=== PATIENT | female | born 1945 | race Two or more races ===

== ENCOUNTER 2017-01-14 15:34 | Emergency (ER) | payer BC, MEDICARE ==
[~2017-01-14] VITALS: Ht 167.6 cm; Wt 70.5 kg
[~2017-01-14 15:34] MED LIST: CYCL-319 PO; HYDR-3498 PO; HYDR1TAB PO; IBUP-1542 PO
[2017-01-14 15:39] VITALS: Ht 167.6 cm; Wt 70.5 kg
[2017-01-14 17:25] LABS: BASOPHIL # 0.1 10^3/ul (0.0-0.1); BASOPHILS % 0.7 % (0.0-2.0); EOSINOPHILS # 0.6 10^3/ul (0.0-0.5); EOSINOPHILS % 5.5 % (0.0-7.0); HEMATOCRIT 39.3 % (37.0-47.0); HEMOGLOBIN 12.6 g/dl (12.0-16.0); LYMPHOCYTES # 2.3 10^3/ul (0.8-2.9); MEAN CORPUSCULAR HEMOGLOBIN 25.8 pg (29.0-33.0); MEAN CORPUSCULAR HGB CONC 32.1 g/dl (32.0-37.0); MEAN CORPUSCULAR VOLUME 80.5 fl (82.0-101.0); MEAN PLATELET VOLUME 8.8 fl (7.4-10.4); MONOCYTES % 9.7 % (0.0-11.0); NEUTROPHIL # 6.5 10^3/ul (1.6-7.5); NEUTROPHILS % 61.7 % (39.0-77.0); PLATELET COUNT 410 10^3/UL (140-415); RED BLOOD COUNT 4.88 10^6/ul (4.20-5.40); WHITE BLOOD COUNT 10.5 10^3/ul (4.8-10.8)
[2017-01-14 17:34] LABS: ADD UMIC YES; UR ASCORBIC ACID NEGATIVE (NEGATIVE); UR BILIRUBIN (Dip) NEGATIVE (NEGATIVE); UR BLOOD (Dip) 1+ mg/dL (NEGATIVE); UR CLARITY CLEAR (CLEAR); UR COLOR STRAW (YELLOW); UR GLUCOSE (Dip) NEGATIVE (NEGATIVE); UR KETONES (Dip) NEGATIVE (NEGATIVE); UR LEUKOCYTE ESTERASE (Dip) NEGATIVE Leu/ul (NEGATIVE); UR NITRITE (Dip) NEGATIVE (NEGATIVE); UR RBC 0 /HPF (0-5); UR SPECIFIC GRAVITY (Dip) 1.004 (1.003-1.030); UR TOTAL PROTEIN (Dip) NEGATIVE (NEGATIVE); UR UROBILINOGEN (Dip) NEGATIVE (NEGATIVE)
[2017-01-14] MEDS ORDERED: SODIUM CHLORIDE 0.9% 1L BAG IV* STA (17:34)
[2017-01-14 17:41] LABS: INR 0.96; PARTIAL THROMBOPLASTIN TIME 28.6 Sec (25.0-35.0); PROTIME 12.8 Sec (12.2-14.2)
[2017-01-14 17:44] LABS: ALANINE AMINOTRANSFERASE 32 IU/L (13-69); ALBUMIN 3.9 g/dl (3.3-4.9); ALBUMIN/GLOBULIN RATIO 1.11; ALKALINE PHOSPHATASE 82 IU/L (42-121); ANION GAP 12 (8-16); ASPARTATE AMINO TRANSFERASE 19 IU/L (15-46); BILIRUBIN,INDIRECT 0.3 mg/dl (0-1.1); BILIRUBIN,TOTAL 0.3 mg/dl (0.2-1.3); BLOOD UREA NITROGEN 17 mg/dl (7-20); CALCIUM 9.8 mg/dl (8.4-10.2); CARBON DIOXIDE 27 mmol/L (21-31); CHLORIDE 104 mmol/L (97-110); GLUCOSE 97 mg/dl (70-220); SODIUM 139 mmol/L (135-144); TOTAL PROTEIN 7.4 g/dl (6.1-8.1)
--- NOTE | 2017-01-14 17:47 | RADRPT ---
PROCEDURE: XR Chest. CLINICAL INDICATION: Chest pain TECHNIQUE: AP view of the chest was performed. COMPARISON: None FINDINGS: The cardiomediastinal silhouette is within normal limits. The lungs are clear. No signs of pleural f luid or pneumothorax are seen. The osseous structures and soft tissues are unremarkable. IMPRESSION: No evidence for active cardiopulmonary disease. RPTAT: QQ .Shelly York MD, MD Date Time Electronically viewed and signed by .Shelly York MD, on 01/14/2017 17:46 .F/
[2017-01-14 18:01] LABS: TROPONIN-I < 0.012 ng/ml (0.00-0.12)
[2017-01-14 18:19] VITALS: BP 135/70; PULSE 78; RESP 18; TEMP 98.8
--- NOTE | 2017-01-14 18:20 | ERD ---
ER Documentation Chief Complaint Date/Time DATE: 01/14/17 TIME: 18:14 Chief Complaint neck pain facial swelling & fever x4 days HPI This is a 71-year-old female who presents to the emergency room for evaluation of nasal congestion, fever and facial swelling for the past 4 days. The patient states that she has been taking Tylenol and Motrin for fever. She denies any neck pain or cough or chest pain associated with this. She denies any blurred vision and also states she took a Claritin to help her with her congestion and facial swelling. She denies any difficulty swallowing or breathing and came to the emergency room for evaluation of her symptoms. ROS All systems reviewed and are negative except as per history of present illness. Medications Home Meds Discontinued Reported Medications Hydrocodone Bit/Acetaminophen (Hydrocodone/Apap 5/500 Tab) 1 Tab Tablet, 1 TAB PO NEEDED 10/05/11 Discontinued Scripts Hydrocodone Bit-Acetaminophen* ([place]*) 5-325 Mg Tab, 1 TAB PO Q6 Y for PAIN, # 7 TAB This medication makes you sleepy. Do not drive or operate heavy machinery while taking it. Prov:VANE BOWEN PA-C 11/02/15 Cyclobenzaprine Hcl* (Cyclobenzaprine Hcl*) 10 Mg Tablet, 10 MG PO BID, #10 TAB Prov:PUMA SHER PA-C 10/09/15 Ibuprofen* (Motrin*) 600 Mg Tab, 600 MG PO Q6, #30 TAB Prov:PUMA SHER PA-C 10/09/15 Allergies Allergies: Coded Allergies: No Known Drug Allergies (Verified Allergy, Unknown, 01/14/17) PMhx/Soc History of Surgery: Yes (NEPHRECTOMY FOR DONATION, RT CARPEL TUNNEL) Anesthesia Reaction: No Hx Neurological Disorder: No Hx Respiratory Disorders: No Hx Cardiac Disorders: No Hx Psychiatric Problems: No Hx Miscellaneous Medical Probl: No Hx Alcohol Use: No Hx Substance Use: No Hx Tobacco Use: No Smoking Status: Never smoker Physical Exam Vitals Vital Signs Date Time Temp Pulse Resp B/P Pulse Ox O2 Delivery O2 Flow Rate FiO2 01/14/17 15:39 98.3 117 20 151/72 99 Physical Exam INITIAL VITAL SIGNS: Reviewed by me GENERAL: The patient is well developed and appropriate for usual state of health in no apparent distress HEENT: Bilateral nasal congestion, no pharyngeal edema, no facial edema pupils equal, round, and reactive to light. EOMI. There is no scleral icterus. NECK: C-spine is soft and supple, there is no meningismus. There is no cervical lymphadenopathy. LUNGS: Clear to auscultation bilaterally. There are no rales, wheezes or rhonchi. HEART: Tachycardic, no murmurs, clicks, rubs or gallops. ABDOMEN: Soft, non-tender, non-distended. There are bowel sounds in all four quadrants. No rebound or guarding. EXTREMITIES: There is no peripheral cyanosis or edema. No focal swelling or erythema. NEUROLOGICAL: The patient moves all four extremities with 5/5 strength. Cranial nerves II - XII are intact. Normal gait. Alert and oriented SKIN: There is no apparent rash or petechiae. HEME/LYMPHATIC: There is no evidence of excessive bruising or lymphedema. PSYCHIATRIC: The patient does not appear anxious or depressed. Result Diagram: 01/14/17 1700 01/14/17 1700 Results 24 hrs Laboratory Tests Test 01/14/17 17:00 01/14/17 17:15 White Blood Count 10.510^3/ul Red Blood Count 4.8810^6/ul Hemoglobin 12.6g/dl Hematocrit 39.3% Mean Corpuscular Volume 80.5fl Mean Corpuscular Hemoglobin 25.8pg Mean Corpuscular Hemoglobin Concent 32.1g/dl Red Cell Distribution Width 13.0% Platelet Count 24445^3/UL Mean Platelet Volume 8.8fl Neutrophils % 61.7% Lymphocytes % 22.0% Monocytes % 9.7% Eosinophils % 5.5% Basophils % 0.7% Nucleated Red Blood Cells % 0.0/100WBC Neutrophils # 6.510^3/ul Lymphocytes # 2.310^3/ul Monocytes # 1.010^3/ul Eosinophils # 0.610^3/ul Basophils # 0.110^3/ul Nucleated Red Blood Cells # 0.010^3/ul Prothrombin Time 12.8Sec Prothrombin Time Ratio 1.0 INR International Normalized Ratio 0.96 Activated Partial Thromboplast Time 28.6Sec Sodium Level 139mmol/L Potassium Level 4.0mmol/L Chloride Level 104mmol/L Carbon Dioxide Level 27mmol/L Anion Gap 12 Blood Urea Nitrogen 17mg/dl Creatinine 0.80mg/dl Glucose Level 97mg/dl Lactic Acid Level 0.9mmol/L Calcium Level 9.8mg/dl Total Bilirubin 0.3mg/dl Direct Bilirubin 0.00mg/dl Indirect Bilirubin 0.3mg/dl Aspartate Amino Transf (AST/SGOT) 19IU/L Alanine Aminotransferase (ALT/SGPT) 32IU/L Alkaline Phosphatase 82IU/L Troponin I < 0.012ng/ml Total Protein 7.4g/dl Albumin 3.9g/dl Globulin 3.50g/dl Albumin/Globulin Ratio 1.11 Urine Color STRAW Urine Clarity CLEAR Urine pH 6.0 Urine Specific [place] 1.004 Urine Ketones NEGATIVEmg/dL Urine Nitrite NEGATIVEmg/dL Urine Bilirubin NEGATIVEmg/dL Urine Urobilinogen NEGATIVEmg/dL Urine Leukocyte Esterase NEGATIVELeu/ul Urine Microscopic RBC 0/HPF Urine Microscopic WBC 0/HPF Urine Hemoglobin 1+mg/dL Urine Glucose NEGATIVEmg/dL Urine Total Protein NEGATIVEmg/dl Current Medications Medications (Trade) Dose Ordered Sig/Noel Route PRN Reason Start Time Stop Time Status Last Admin Dose Admin Sodium Chloride (NS) 2,000 ml BOLUS OVER 2 HOURS STAT IV* 01/14/17 17:34 01/14/17 17:35 DC 01/14/17 17:53 Procedures/MDM EKG: Rate/Rhythm: [Normal Sinus Rhythm] QRS, ST, T-waves: [No changes consistent w/ acute ischemia] Impression: [No evidence of ischemia or arrhythmia] Chest X-ray 1V Interpreted by me: Soft Tissue: No acute abnormalities Bones: No acute abnormalities Mediastinum/Cardiac Silhouette/Lungs: [No acute abnormalities] This 71-year-old female presents to the emergency room for evaluation of fever, nasal congestion, facial swelling. On my examination there was no facial swelling, she had no pharyngeal edema. She was tolerating secretions and was not hypoxic. The patient was slightly tachycardic with a heart rate of 104. I did start a septic workup on this patient and her lab work has come back within normal limits. She was given 1-1/2 L of fluid and when I reevaluated this patient she was in no acute distress, influenza is negative at this time. I did advise the patient that although I do not see any facial swelling after I do not see any facial swelling. The patient states that the her face is more swollen than normal. Claritin is not working I told the patient I will write her prescription for Medrol Dosepak. The patient is okay to plan of care and will be discharged at this time with instructions to return to the emergency room for any signs of increased fever or agitation or shortness of breath and she verbalized understanding Departure Diagnosis: Primary Impression: Viral syndrome Additional Impression: Tachycardia Condition: Stable GILMA NUNEZ DO Jan 14, 2017 18:20
[2017-01-14] MEDS ORDERED: MED4DP PO (18:21)
== END 2017-01-14 18:19 | disposition home or self-care (01) ==
LOC: E/R 15:34
DX: B34.9 Viral infection, unspecified (principal); R00.0 Tachycardia, unspecified; R07.9 Chest pain, unspecified
CPT/HCPCS: 36415; 71010; 80053; 81001; 83605; 84484; 85025; 85610; 85730; 87040; 87086; 87400; 93005; 99285; J7030

== ENCOUNTER 2017-01-28 11:56 | Observation (INO) | payer MEDICARE ==
[~2017-01-28] VITALS: Ht 167.6 cm; Wt 72.0 kg
[~2017-01-28 11:56] MED LIST changes: -CYCL-319 PO; -HYDR-3498 PO; -HYDR1TAB PO; -IBUP-1542 PO; +MED4DP PO
--- NOTE | 2017-01-28 12:26 | ERA ---
ER Documentation Chief Complaint Date/Time DATE: 01/28/17 TIME: 12:24 Chief Complaint FEVER ON & OFF X6 DAYS, FINISH ABX ON 01/19/17, CHANGE IN LEFT EYE VISION HPI This is a 71-year-old female with a past medical history of cataracts status post left eye cataract removal and lens replacement, left nephrectomy for donation who is presenting with waxing and waning fever over the last several weeks. The patient states that she started to develop a fever. She felt facial and throat swelling and pain. She was evaluated on January 14 and ultimately discharged with a prescription for a Medrol Dosepak. She was later evaluated by her primary doctor and ultimately prescribed antibiotics that she finished on the . She felt like things perhaps were getting better, but she began to develop fever again after cessation of the antibiotics. She also endorses generalized fatigue. Over the past few days, she is also felt mild intermittent palpitations, which was concerning to her. She has a secondary complaint of left visual impairment. She does have a history as described above, and she is concerned that something could be wrong with her lens. She was evaluated by an elementary special education teacher who stated that it seemed like her optic nerve was swollen. She is set to be evaluated by a retina specialist. The patient has had no headache. The patient denies lightheadedness or dizziness. She denies a cough. The patient has had no chest pain or shortness of breath or any trouble breathing. The patient denies abdominal pain or changes to bowel movements or urination. The patient has had no focal deficits , aside from her eye complaints. The patient has had no weakness or numbness or tingling to the face or extremities. ROS All systems reviewed and are negative except as per history of present illness. Medications Home Meds Active Scripts Methylprednisolone* (Medrol* DOSE PACK) 4 Mg/Dose-Pack Tab.ds.pk, 4 MG PO . DIRECTED for 7 Days, PACKET Prov:JEN NUNEZLARRY GOODWIN 01/14/17 Allergies Allergies: Coded Allergies: No Known Drug Allergies (Verified Allergy, Unknown, 01/14/17) PMhx/Soc History of Surgery: Yes (NEPHRECTOMY FOR DONATION, RT CARPEL TUNNEL, left eye cataract surgery) Anesthesia Reaction: No Hx Neurological Disorder: No Hx Respiratory Disorders: No Hx Cardiac Disorders: No Hx Psychiatric Problems: No Hx Miscellaneous Medical Probl: No Hx Alcohol Use: No Hx Substance Use: No Hx Tobacco Use: No FmHx Family History: No diabetes Physical Exam Vitals Vital Signs Date Time Temp Pulse Resp B/P Pulse Ox O2 Delivery O2 Flow Rate FiO2 01/28/17 14:13 98.5 90 20 124/64 100 Room Air 01/28/17 12:58 Nasal Cannula 01/28/17 12:04 98.8 124 22 140/74 99 Physical Exam Const: No apparent distress, well-developed, well-nourished Head: Atraumatic Eyes: Normal Conjunctiva. Extraocular movements intact. Left eye peripheral visual field deficits. Ophthalmologic exam limited secondary to patient's inability to keep her eye still and the fact that the eyes is not dilated ENT: Normal External Ears, Nose and Mouth. No oral pharyngeal erythema or exudate or edema. Tonsils are symmetric and normal in appearance Neck: Full range of motion. ~ No meningismus. Resp: Clear to auscultation bilaterally Cardio: Regular rhythm, sinus tachycardia, no murmurs Abd: Soft, non tender, non distended. Normal bowel sounds, well-healed left abdominal surgical scar Skin: No petechiae or rashes Back: No midline or flank tenderness Ext: No cyanosis, or edema Neur: Awake and alert, oriented 4. Cranial nerves intact, aside from known left eye deficits. No facial droop. Normal strength and sensation in all extremities. Coordination with finger to nose normal. Psych: Normal Mood and Affect Result Diagram: 01/28/17 1254 01/28/17 1254 Results 24 hrs Laboratory Tests Test 01/28/17 12:54 White Blood Count 12.210^3/ul Red Blood Count 4.6010^6/ul Hemoglobin 11.3g/dl Hematocrit 37.0% Mean Corpuscular Volume 80.4fl Mean Corpuscular Hemoglobin 24.6pg Mean Corpuscular Hemoglobin Concent 30.5g/dl Red Cell Distribution Width 13.5% Platelet Count 29045^3/UL Mean Platelet Volume 9.1fl Neutrophils % 73.9% Lymphocytes % 16.4% Monocytes % 6.3% Eosinophils % 2.3% Basophils % 0.7% Nucleated Red Blood Cells % 0.0/100WBC Neutrophils # 9.010^3/ul Lymphocytes # 2.010^3/ul Monocytes # 0.810^3/ul Eosinophils # 0.310^3/ul Basophils # 0.110^3/ul Nucleated Red Blood Cells # 0.010^3/ul Prothrombin Time 12.7Sec Prothrombin Time Ratio 1.0 INR International Normalized Ratio 0.95 Activated Partial Thromboplast Time 29.5Sec Urine Color COLORLESS Urine Clarity CLEAR Urine pH 7.0 Urine Specific [place] 1.002 Urine Ketones NEGATIVEmg/dL Urine Nitrite NEGATIVEmg/dL Urine Bilirubin NEGATIVEmg/dL Urine Urobilinogen NEGATIVEmg/dL Urine Leukocyte Esterase NEGATIVELeu/ul Urine Hemoglobin NEGATIVEmg/dL Urine Glucose NEGATIVEmg/dL Urine Total Protein NEGATIVEmg/dl Sodium Level 138mmol/L Potassium Level 4.1mmol/L Chloride Level 103mmol/L Carbon Dioxide Level 29mmol/L Anion Gap 10 Blood Urea Nitrogen 14mg/dl Creatinine 0.81mg/dl Glucose Level 116mg/dl Lactic Acid Level 1.8mmol/L Calcium Level 9.4mg/dl Total Bilirubin 0.2mg/dl Direct Bilirubin 0.00mg/dl Indirect Bilirubin 0.2mg/dl Aspartate Amino Transf (AST/SGOT) 21IU/L Alanine Aminotransferase (ALT/SGPT) 29IU/L Alkaline Phosphatase 85IU/L Troponin I < 0.012ng/ml Total Protein 6.8g/dl Albumin 3.6g/dl Globulin 3.20g/dl Albumin/Globulin Ratio 1.12 Thyroid Stimulating Hormone (TSH) 2.580MIU/L Free Thyroxine 1.02ng/dl Current Medications Medications (Trade) Dose Ordered Sig/Noel Route PRN Reason Start Time Stop Time Status Last Admin Dose Admin Ketorolac Tromethamine (Toradol) 15 mg ONCE STAT IV 01/28/17 13:55 01/28/17 13:56 DC 01/28/17 14:10 Procedures/MDM MDM Patient's presentation warrants further investigation. The patient is afebrile in the emergency department, but she did take Tylenol 2 hours prior to arrival today. She remained afebrile 4 hours out from her Tylenol dose, which is reassuring. Take any drugs chronically, and I do not suspect a drug fever. An infectious etiology is certainly possible, and a workup will be performed. We will also obtain a septic workup, including CBC, CMP and lactic. That said, I am less suspicious for sepsis at this time. She will receive IV fluids given her tachycardia to evaluate for improvement. I will also obtain a TSH for evaluation of her thyroid function given her tachycardia today. An inflammatory process is also possible, but the patient does not endorse any autoimmune diseases in her or her family. She endorses left eye complaints, but she has had previous surgeries to that I, and it is currently being worked up by an elementary special education teacher. That said, there is concern of papilledema. I will obtain a CT scan for intracranial evaluation. LABS The patient's blood work was obtained and reviewed. The patient seemed shows mild leukocytosis but no left shift. The patient is afebrile, and I do not suspect a systemic infection. The patient is not anemic today. The patient's platelet count is unremarkable. The patient's CMP shows no signs of metabolic or electrolyte abnormality. The patient has normal renal and hepatic function testing. Her TSH is currently pending. Her lactic is within normal limits. Her rapid strep test was negative. EKG EKG read by me: Rate/Rhythm: Regular rhythm, sinus tachycardia at 108bpm Intervals: Normal [place]: Left shifted Impression: No evidence of acute ischemia, No ST or T wave changes concerning for acute coronary syndrome IMAGING CXR FINDINGS: The lungs are clear. The heart size is normal. There is no pleural effusion. There is no pneumothorax. IMPRESSION: Normal chest radiograph. No change from 01/14/2017. Electronically viewed and signed by .Jimbo Garcia MD, MD on 01/28/2017 13:17 CT HEAD FINDINGS: There is normal armstrong-white matter differentiation. The ventricles and cisterns are normal. There is no intracranial hemorrhage or space-occupying lesion. There is no skull fracture or lytic lesion. IMPRESSION: Normal noncontrast CT scan of the brain. No change from 01/16/2013. Electronically viewed and signed by .Jimbo Garcia MD, on 01/28/2017 13:41 TREATMENT/DISPOSITION After receiving IV fluids, the patient's heart rate returned to within normal limits. Her most recent pulse check was at 98, which is reassuring. The patient's vital signs remained stable while in the emergency department. She was initially hypertensive. This may be followed up by her primary physician as an outpatient. I do not see signs of sepsis or an infectious etiology at this time. The patient does have a mild leukocytosis, but no left shift. This could be an inflammatory process or stress reaction. The patient was told that she may have some evidence of papilledema by her elementary special education teacher. She has a retina specialist that she is already going to see. The patient's CT scan is negative at this time. She does not have a history of MS, and I have low suspicion for this presently. She has had surgeries of that in the past which may complicate the picture as well. This also needs to be further evaluated as an outpatient. I will provide the patient a prescription for steroids, which may provide some relief. The patient needs to follow-up with her primary care physician in 1-3 days for reevaluation. She will be given precautions with which to return to the emergency department. The patient is stable for discharge at this time. Departure Diagnosis: Primary Impression: Fever Qualified Code: R50.9 - Fever, unspecified fever cause Additional Impression: Sinus tachycardia Condition: Stable KATIE ADEN MD Jan 28, 2017 12:26
[2017-01-28 13:14] LABS: BASOPHIL # 0.1 10^3/ul (0.0-0.1); BASOPHILS % 0.7 % (0.0-2.0); EOSINOPHILS # 0.3 10^3/ul (0.0-0.5); EOSINOPHILS % 2.3 % (0.0-7.0); HEMOGLOBIN 11.3 g/dl (12.0-16.0); LYMPHOCYTES % 16.4 % (15.0-51.0); MEAN CORPUSCULAR HEMOGLOBIN 24.6 pg (29.0-33.0); MEAN CORPUSCULAR HGB CONC 30.5 g/dl (32.0-37.0); MEAN CORPUSCULAR VOLUME 80.4 fl (82.0-101.0); MEAN PLATELET VOLUME 9.1 fl (7.4-10.4); MONOCYTE # 0.8 10^3/ul (0.3-0.9); MONOCYTES % 6.3 % (0.0-11.0); NEUTROPHILS % 73.9 % (39.0-77.0); PLATELET COUNT 378 10^3/UL (140-415); RED CELL DISTRIBUTION WIDTH 13.5 % (11.5-14.5); WHITE BLOOD COUNT 12.2 10^3/ul (4.8-10.8)
--- NOTE | 2017-01-28 13:17 | RADRPT ---
PROCEDURE: XR Chest. CLINICAL INDICATION: Fever and sepsis. TECHNIQUE: Single frontal view. COMPARISON: 01/14/2017. FINDINGS: The lungs are clear. The heart size is normal. There is no pleural effusion. There is no pneumothorax. IMPRESSION: 1. Normal chest radiograph. 2. No change from 01/14/2017. RPTAT: QQ .Jmibo Garcia MD, MD Date Time Electronically viewed and signed by .Jimbo Garcia MD, on 01/28/2017 13:17 .R/
[2017-01-28 13:19] LABS: ADD UMIC NO; UR ASCORBIC ACID NEGATIVE (NEGATIVE); UR BILIRUBIN (Dip) NEGATIVE (NEGATIVE); UR BLOOD (Dip) NEGATIVE (NEGATIVE); UR CLARITY CLEAR (CLEAR); UR COLOR COLORLESS (YELLOW); UR GLUCOSE (Dip) NEGATIVE (NEGATIVE); UR KETONES (Dip) NEGATIVE (NEGATIVE); UR LEUKOCYTE ESTERASE (Dip) NEGATIVE Leu/ul (NEGATIVE); UR NITRITE (Dip) NEGATIVE (NEGATIVE); UR SPECIFIC GRAVITY (Dip) 1.002 (1.003-1.030); UR TOTAL PROTEIN (Dip) NEGATIVE (NEGATIVE); UR UROBILINOGEN (Dip) NEGATIVE (NEGATIVE)
[2017-01-28 13:22] LABS: INR 0.95; PROTIME 12.7 Sec (12.2-14.2)
[2017-01-28 13:23] LABS: PARTIAL THROMBOPLASTIN TIME 29.5 Sec (25.0-35.0)
[2017-01-28 13:25] LABS: ALANINE AMINOTRANSFERASE 29 IU/L (13-69); ALBUMIN 3.6 g/dl (3.3-4.9); ALBUMIN/GLOBULIN RATIO 1.12; ALKALINE PHOSPHATASE 85 IU/L (42-121); ANION GAP 10 (8-16); ASPARTATE AMINO TRANSFERASE 21 IU/L (15-46); BILIRUBIN,INDIRECT 0.2 mg/dl (0-1.1); BILIRUBIN,TOTAL 0.2 mg/dl (0.2-1.3); BLOOD UREA NITROGEN 14 mg/dl (7-20); CALCIUM 9.4 mg/dl (8.4-10.2); CARBON DIOXIDE 29 mmol/L (21-31); CHLORIDE 103 mmol/L (97-110); CREATININE 0.81 mg/dl (0.44-1.00); GLUCOSE 116 mg/dl (70-220); POTASSIUM 4.1 mmol/L (3.5-5.1); SODIUM 138 mmol/L (135-144); TOTAL PROTEIN 6.8 g/dl (6.1-8.1)
[2017-01-28 13:38] LABS: TROPONIN-I < 0.012 ng/ml (0.00-0.12)
--- NOTE | 2017-01-28 13:49 | RADRPT ---
PROCEDURE: CT Brain without contrast. CLINICAL INDICATION: Headache. Fever. Sepsis. TECHNIQUE: A CT of the brain without contrast was performed utilizing axial sections from the skul l base through the vertex. The patient was scanned without intravenous contrast enhancement. [place] l and coronal reformatted images were obtained using the data from the axial images. Total exam DLP is 720.23 mGy-cm. CTDIvol is 44.58 mGy. One or more of the following dose reduction techniques we re used: Automated exposure control, adjustment of the mA and/or kV according to patient size, use o f iterative reconstruction technique. COMPARISON: CT scan of the brain dated 01/16/2013. FINDINGS: There is normal armstrong-white matter differentiation. The ventricles and cisterns are normal. There is no intracranial hemorrhage or space-occupying lesion. There is no skull fracture or lytic lesion. IMPRESSION: 1. Normal noncontrast CT scan of the brain. 2. No change from 01/16/2013. RPTAT: QQ .Jimbo Garcia MD, MD Date Time Electronically viewed and signed by .Jimbo Garcia MD, on 01/28/2017 13:41 .R/
[2017-01-28] MEDS ORDERED: KETOROLAC 15 MG INJ IV STA (13:55)
[2017-01-28] MEDS ORDERED: PRED20TA PO (14:51)
[2017-01-28 16:00] VITALS: PULSE 86; TEMP 98
[2017-01-28] MEDS ORDERED: ONDANSETRON 4 MG INJ IV PRN ×2 (17:00→17:30)
[2017-01-28] MEDS ORDERED: ACETAMINOPHEN 325 MG TAB PO PRN ×2 (17:00→18:00)
[2017-01-28] MEDS ORDERED: METHYLPREDNISOLONE 1000 MG INJ IVPB SCH (17:00)
[2017-01-28] MEDS ORDERED: NACL 0.9% 3 ML SYG IV SCH (17:30)
[2017-01-28] MEDS ORDERED: morphine 2 MG INJ IV PRN (17:30)
[2017-01-28] MEDS ORDERED: BISACODYL (EC) 5 MG TAB PO PRN (17:30)
[2017-01-28 17:35] VITALS: Ht 167.6 cm; Wt 72.0 kg
--- NOTE | 2017-01-28 17:56 | HP ---
Date/Time of Note Date/Time of Note DATE: 01/28/17 TIME: 17:37 Assessment/Plan VTE Prophylaxis VTE Prophylaxis Intervention: SCD's Assessment/Plan Chief Complaint/Hosp Course Patient is a 71-year-old Bangl[place] female with no significant past medical history who presents with left-sided jaw and temporal pain found to have elevated ESR, admitted for possible giant cell arteritis Assessment Bilateral jaw pain, questionable giant cell arteritis Left temporal pain Subjective fevers, not seen during this admission so far Left eye vision loss Throat pain, resolving anemia Elevated ESR Elevated CRP Leukocytosis Tachycardia, resolved Plan -Patient admitted for possible giant cell arteritis, patient has mildly elevated ESR as well as CRP. Patient also has physical symptoms consistent with giant cell arteritis including vision loss, left temporal pain, jaw pain. Although there may be other etiologies of her vision loss including a history of glaucoma, cannot rule out giant cell arteritis at this time. -Due to possible acute vision loss, will start high-dose IV steroids at 1 g daily for 3 days and then high-dose oral steroids upon DC. -fever has not been documented here during this encounter however blood cultures were taken in the ED and patient will be monitored. Patient does have a slight elevated white count however may be reactive and is very near normal at this time. Will monitor closely -Radiology has been contacted in order to order a ultrasound of the temporal artery, upon speaking with on-call radiologist, it is possible to get an ultrasound of the temporal artery, however upon speaking to the machining technician, a more specialized sleep lab technologist who is more comfortable/ experienced with vascular ultrasounds will be in tomorrow, patient is currently getting treatment for possible temporal arteritis, and experienced outside plant technician would be valuable in diagnosing this condition in a noninvasive way, radiology stated they would attempt to put the correct order in. Will contact radiology again tomorrow if appropriate study is not entered into the chart. -Patient also has undiagnosed anemia, will obtain reticulocyte count and iron panel for tomorrow -uncertain if patient's subjective fevers are associated with this disease process, however will monitor closely. Problems: HPI/ROS Admit Date/Time Admit Date/Time Hx of Present Illness Patient is a 71-year-old Bangl[place] female with no significant past medical history except for elective nephrectomy for transplant of her kidney into her who presents with a 2-3 week history of multiple symptoms including intermittent fevers, left eye vision loss, left temporal pain as well as bilateral jaw pain. Patient states that approximately 3 weeks ago, there was a leak in her house and upon fixing the leak which required operating the carpet and tile and large fans, patient began to feel ill. Patient states that she has been having on and off fevers and actually was in the ED a few weeks ago and was discharged with a Medrol Dosepak which she felt her symptoms were relieved. Patient also saw her primary care provider who stated to alternate between Tylenol and Advil for her fevers. Patient states that she came to the ED as her symptoms have not resolved. Patient had recently seen her floral department specialist for her new onset 2 week history of left eye vision loss which resulted in questionable papilledema and was referred to a retina specialist. Currently patient still complains of all the same complaints. Patient denies any headache or new onset bilateral shoulder or pelvic pain. Patient does have mild chronic right shoulder issues for many years however. Patient denies nausea and vomiting, shortness of breath or chest pain. No issues with mobility and patient states that she never gets sick and is on no medications. No reported fevers in ED, however patient states she took tylenol before she came into the ED. PMH: Elective left nephrectomy for transplantation, cataracts PSH: Left nephrectomy, right carpal tunnel surgery, left cataract surgery Social: Denies smoking, drinking, drugs Meds: None PMH/Family/Social Social History Smoking Status: Never smoker Exam/Review of Systems Vital Signs Vitals Vital Signs Date Time Temp Pulse Resp B/P Pulse Ox O2 Delivery O2 Flow Rate FiO2 01/28/17 16:00 98.0 86 20 131/66 100 Room Air Exam Exam Physical exam General: Patient is laying in bed and answers questions appropriately Mentation: Patient is alert and oriented 4, Head: Normocephalic atraumatic, mild tenderness palpating the left TMJ/temporal area. Eyes: EOMI, pupils reactive to light Neck: Supple, nontender, midline Respiratory: Clear to auscultation bilaterally Cardiovascular: regular rate, no obvious murmurs Gastrointestinal: non-tender to palpation, bowel sounds heard. Neurological: Moves all extremities spontaneously Skin: No new skin lesions Labs Result Diagram: 01/28/17 1254 01/28/17 1254 MAILE MADISON Jan 28, 2017 17:53
[2017-01-28 18:00] VITALS: BP 158/75; RESP 18
[2017-01-28 20:12] VITALS: BP 129/58; RESP 18
[2017-01-28] MEDS: METHYLPRED. NA SUCC 1,000 MG in DEXTROSE 5% 50 ML IV SCH (20:26)
[2017-01-29 02:01] VITALS: BP 115/56; RESP 18
[2017-01-29 05:15] LABS: BASOPHILS % 0.2 % (0.0-2.0); HEMATOCRIT 39.5 % (37.0-47.0); LYMPHOCYTES # 0.9 10^3/ul (0.8-2.9); LYMPHOCYTES % 9.8 % (15.0-51.0); MEAN CORPUSCULAR HEMOGLOBIN 24.2 pg (29.0-33.0); MEAN CORPUSCULAR HGB CONC 30.4 g/dl (32.0-37.0); MEAN CORPUSCULAR VOLUME 79.8 fl (82.0-101.0); MEAN PLATELET VOLUME 8.9 fl (7.4-10.4); MONOCYTES % 0.3 % (0.0-11.0); NEUTROPHILS % 89.1 % (39.0-77.0); PLATELET COUNT 388 10^3/UL (140-415); RED BLOOD COUNT 4.95 10^6/ul (4.20-5.40); RED CELL DISTRIBUTION WIDTH 13.2 % (11.5-14.5); WHITE BLOOD COUNT 8.9 10^3/ul (4.8-10.8)
[2017-01-29 05:16] LABS: RETICULOCYTE COUNT % 0.6 % (0.5-1.5)
[2017-01-29 05:32] LABS: IRON 18 ug/dl (35-150)
[2017-01-29 05:37] LABS: ALBUMIN 3.5 g/dl (3.3-4.9); ALBUMIN/GLOBULIN RATIO 0.92; BILIRUBIN,INDIRECT 0.2 mg/dl (0-1.1); BILIRUBIN,TOTAL 0.2 mg/dl (0.2-1.3); CALCIUM 9.9 mg/dl (8.4-10.2); CREATININE 0.74 mg/dl (0.44-1.00); POTASSIUM 4.3 mmol/L (3.5-5.1); TOTAL PROTEIN 7.3 g/dl (6.1-8.1)
[2017-01-29 05:41] LABS: TOTAL IRON BINDING CAPACITY 279 ug/dl (241-421)
[2017-01-29 07:00] VITALS: BP 119/58; RESP 18
[2017-01-29] MEDS: METHYLPRED. NA SUCC 1,000 MG in DEXTROSE 5% 50 ML IV SCH (08:27)
[2017-01-29] MEDS: ENOXAPARIN 40 MG/0.4 ML SYG SC SCH (08:47)
--- NOTE | 2017-01-29 11:23 | PN ---
Date/Time of Note Date/Time of Note DATE: 01/29/17 TIME: 10:35 Assessment/Plan VTE Prophylaxis VTE Prophylaxis Intervention: SCD's Lines/Catheters IV Catheter Type (from Nrsg): Saline Lock Assessment/Plan Assessment/Plan 1. Vision loss with left temporal pain - possibly temporal arteritis - Elevated ESR and CRP - Started on high dose steroids - Vascular surgery consult placed for biopsy to confirm giant cell arteritis - Will continue on high dose steroids IV and transition to PO upon discharge. - remains afebrile 2. Anemia - low iron levels. Will start on PO iron supplement Subjective 24 Hr Interval Summary Free Text/Dictation Patient states vision has slightly improved in right eye. Was completely black yesterday but does see some light coming through now. Still blurry however. Able to tolerating chewing and denies any headache or fevers. Requesting to see eye doctor but none available inhouse. Exam/Review of Systems Vital Signs Vitals Vital Signs Date Time Temp Pulse Resp B/P Pulse Ox O2 Delivery O2 Flow Rate FiO2 01/29/17 07:00 97.8 98 18 119/58 98 01/28/17 16:00 Room Air Intake and Output 01/28/17 01/28/17 01/29/17 15:00 23:00 07:00 Intake Total 50 ml 200 ml Balance 50 ml 200 ml Exam General: NAD, awake and alert. answering appropriately Head: Normocephalic atraumatic, mild tenderness palpating the left TMJ Eyes: EOMI, pupils reactive to light Neck: Supple, nontender, midline Lungs: Clear to auscultation bilaterally, no wheezes or crackles CVS: regular rate, no obvious murmurs GI: non-tender to palpation, bowel sounds heard. soft, no rebound or guarding Ext: no clubbing, edema, or cyanosis Results Result Diagram: 01/29/17 0457 01/29/17 0457 Results 24 hrs Laboratory Tests Test 01/28/17 12:45 01/28/17 12:54 01/29/17 04:57 Erythrocyte Sedimentation Rate 53 H C-Reactive Protein 5.9 H White Blood Count 12.2 H 8.9 # Red Blood Count 4.60 4.95 Hemoglobin 11.3 L 12.0 Hematocrit 37.0 39.5 Mean Corpuscular Volume 80.4 L 79.8 L Mean Corpuscular Hemoglobin 24.6 L 24.2 L Mean Corpuscular Hemoglobin Concent 30.5 L 30.4 L Red Cell Distribution Width 13.5 13.2 Platelet Count 378 388 Mean Platelet Volume 9.1 8.9 Neutrophils % 73.9 89.1 H Lymphocytes % 16.4 9.8 L Monocytes % 6.3 0.3 Eosinophils % 2.3 0.0 Basophils % 0.7 0.2 Nucleated Red Blood Cells % 0.0 0.0 Neutrophils # 9.0 H 8.0 H Lymphocytes # 2.0 0.9 Monocytes # 0.8 0.0 L Eosinophils # 0.3 0.0 Basophils # 0.1 0.0 Nucleated Red Blood Cells # 0.0 0.0 Prothrombin Time 12.7 Prothrombin Time Ratio 1.0 INR International Normalized Ratio 0.95 Activated Partial Thromboplast Time 29.5 Urine Color COLORLESS Urine Clarity CLEAR Urine pH 7.0 Urine Specific [place] 1.002 L Urine Ketones NEGATIVE Urine Nitrite NEGATIVE Urine Bilirubin NEGATIVE Urine Urobilinogen NEGATIVE Urine Leukocyte Esterase NEGATIVE Urine Hemoglobin NEGATIVE Urine Glucose NEGATIVE Urine Total Protein NEGATIVE Sodium Level 138 137 Potassium Level 4.1 4.3 Chloride Level 103 105 Carbon Dioxide Level 29 25 Anion Gap 10 11 Blood Urea Nitrogen 14 21 H Creatinine 0.81 0.74 Glucose Level 116 229 #H Lactic Acid Level 1.8 Calcium Level 9.4 9.9 Total Bilirubin 0.2 0.2 Direct Bilirubin 0.00 0.00 Indirect Bilirubin 0.2 0.2 Aspartate Amino Transf (AST/SGOT) 21 17 Alanine Aminotransferase (ALT/SGPT) 29 27 Alkaline Phosphatase 85 88 Troponin I < 0.012 Total Protein 6.8 7.3 Albumin 3.6 3.5 Globulin 3.20 3.80 H Albumin/Globulin Ratio 1.12 0.92 Thyroid Stimulating Hormone (TSH) 2.580 Free Thyroxine 1.02 Absolute Reticulocyte Count 0.028 Percent Reticulocyte Count 0.6 Iron Level 18 L Total Iron Binding Capacity 279 Percent Iron Saturation 6 L Ferritin 111.0 Medications Medications Current Medications Ondansetron HCl (Zofran Inj) 4 mg Q6H PRN IV NAUSEA AND/OR VOMITING; Start 01/28/17 at 17:30 Morphine Sulfate (morphine) 2 mg Q4H PRN IV SEVERE PAIN LEVEL 7-10; Start 01/28 at 17:30 Bisacodyl (Dulcolax) 5 mg DAILY PRN PO CONSTIPATION; Start 01/28/17 at 17:30 Enoxaparin Sodium 40 mg 40 mg DAILY SC Last administered on 01/29/17 08:47; Admin Dose 40 MG; Start 01/29/17 at 09:00 Methylprednisolone Sodium Succinate/ Dextrose (Solu-Medrol/D5W) 50 ml @ 50 mls/ hr DAILY IV Last administered on 01/29/17 08:27; Admin Dose 50 MLS/HR; Start 01/28/17 at 18:30; Stop 01/30/17 at 09:59 Acetaminophen (Tylenol Tab) 650 mg Q6H PRN PO PAIN AND OR ELEVATED TEMP; Start 01/28/17 at 18:00 Influenza Virus Vaccine (Fluzone) 0.5 ml ONCE ONCE IM* ; Start 01/30/17 at 09:00 ; Stop 01/30/17 at 09:01 RACHANA DALEY MD Jan 29, 2017 10:35
[2017-01-29 14:00] VITALS: BP 134/65; RESP 18
[2017-01-29 19:48] VITALS: BP 129/58; RESP 18
[2017-01-30 01:53] VITALS: BP 124/58; RESP 18
--- NOTE | 2017-01-30 05:18 | CONS ---
DATE OF ADMISSION: 01/28/2017 DATE OF CONSULTATION: 01/29/2017 REASON FOR CONSULTATION: Evaluation for temporal artery biopsy. HISTORY OF PRESENT ILLNESS: This is a 71-year-old female, admitted because of pain and headaches. The patient's workup has current currently been negative and she will be needing temporal artery biopsy to rule out temporal arteritis. PAST MEDICAL HISTORY: Hypertension, hyperlipidemia, elevation of ESR and CPR, tachycardia, leukocytosis. PAST SURGICAL HISTORY: None. ALLERGIES: NONE. SOCIAL HISTORY: No drug use. No smoking. MEDICATION: List reviewed. PHYSICAL EXAMINATION: GENERAL APPEARANCE: Patient is awake, alert, responds appropriately. VITAL SIGNS: Blood pressure is 134/65, pulse is 109, respirations 18, temperature is 98, saturation 99 percent. HEENT: Normocephalic, atraumatic. NECK: Supple. No JVD. No carotid bruits. CARDIOVASCULAR: Regular rate and rhythm. LUNGS: Lungs are clear. ABDOMEN: Soft. EXTREMITIES: Warm. IMPRESSION: Rule out temporal arteritis. RECOMMENDATIONS: Would proceed with temporal artery biopsy. Discussed with the patient. All questions answered. Dictated By: Calderon Alcantar MD /[email or web address] /Document#: [id number]
[2017-01-30 06:17] LABS: ABNORMAL IP MESSAGE 1; BASOPHILS % 0.1 % (0.0-2.0); HEMATOCRIT 36.4 % (37.0-47.0); HEMOGLOBIN 11.7 g/dl (12.0-16.0); LYMPHOCYTES # 1.2 10^3/ul (0.8-2.9); LYMPHOCYTES % 5.4 % (15.0-51.0); MEAN CORPUSCULAR HEMOGLOBIN 25.4 pg (29.0-33.0); MEAN CORPUSCULAR HGB CONC 32.1 g/dl (32.0-37.0); MEAN PLATELET VOLUME 9.2 fl (7.4-10.4); MONOCYTE # 0.4 10^3/ul (0.3-0.9); MONOCYTES % 1.9 % (0.0-11.0); NEUTROPHIL # 20.1 10^3/ul (1.6-7.5); NEUTROPHILS % 91.9 % (39.0-77.0); PLATELET COUNT 437 10^3/UL (140-415); RED BLOOD COUNT 4.61 10^6/ul (4.20-5.40); WHITE BLOOD COUNT 21.9 10^3/ul (4.8-10.8)
[2017-01-30 06:22] LABS: POSITIVE DIFF @See below
[2017-01-30 06:49] LABS: ALBUMIN 3.4 g/dl (3.3-4.9); CALCIUM 9.5 mg/dl (8.4-10.2); CREATININE 0.75 mg/dl (0.44-1.00); PHOSPHORUS 3.3 mg/dl (2.5-4.9); POTASSIUM 4.6 mmol/L (3.5-5.1)
[2017-01-30 07:29] VITALS: BP 134/73; RESP 18
[2017-01-30] MEDS ORDERED: FERROUS SULFATE (EC) 325 MG TAB PO SCH (09:00)
[2017-01-30] MEDS ORDERED: INFLUENZA VIRUS VACCINE 0.5 ML (DISPENSING) IM* ONE (09:00)
[2017-01-30] MEDS: ENOXAPARIN 40 MG/0.4 ML SYG SC SCH (10:03)
[2017-01-30] MEDS: METHYLPRED. NA SUCC 1,000 MG in DEXTROSE 5% 50 ML IV SCH (10:07)
[2017-01-30 14:02] VITALS: BP 146/69; RESP 18
--- NOTE | 2017-01-30 14:57 | PN ---
Date/Time of Note Date/Time of Note DATE: 01/30/17 TIME: 14:53 Assessment/Plan VTE Prophylaxis VTE Prophylaxis Intervention: ambulation Lines/Catheters IV Catheter Type (from Nrs): Saline Lock Assessment/Plan Assessment/Plan 1. Vision loss with left temporal pain - possibly temporal arteritis. - Elevated ESR and CRP - Started on high dose steroids - Vascular surgery consult placed for biopsy to confirm giant cell arteritis. Will plan for outpatient biopsy - Completed 3 days of high dose steroids. will start on PO and do a long taper. To be continued/followed up by PCP. Will start on Calcium and Vit D supplements while on steroids - remains afebrile 2. Anemia - low iron levels. Will start on PO iron supplement 3. Disposition - Medically cleared for d/c home Subjective 24 Hr Interval Summary Free Text/Dictation Patient states she is still experiencing some left jaw pain with chewing but no issues when talking. She states she can see more light through left eye but still experiencing blurry vision. No acute overnight events. Exam/Review of Systems Vital Signs Vitals Vital Signs Date Time Temp Pulse Resp B/P Pulse Ox O2 Delivery O2 Flow Rate FiO2 01/30/17 14:02 98.5 108 18 146/69 97 01/28/17 16:00 Room Air Intake and Output 01/29/17 01/29/17 01/30/17 15:00 23:00 07:00 Intake Total 50 ml 1000 ml 300 ml Output Total 900 ml Balance 50 ml 100 ml 300 ml Exam General: NAD, awake and alert. answering appropriately Head: Normocephalic atraumatic, mild tenderness left TMJ. no tenderness left temporal area Eyes: EOMI, pupils reactive to light Neck: Supple, nontender, midline Lungs: Clear to auscultation bilaterally, no wheezes or crackles CVS: regular rate, no obvious murmurs GI: non-tender to palpation, bowel sounds heard. soft, no rebound or guarding Ext: no clubbing, edema, or cyanosis Results Result Diagram: 01/30/17 0536 01/30/17 0536 Results 24 hrs Laboratory Tests Test 01/30/17 05:36 White Blood Count 21.9 #H Red Blood Count 4.61 Hemoglobin 11.7 L Hematocrit 36.4 L Mean Corpuscular Volume 79.0 L Mean Corpuscular Hemoglobin 25.4 L Mean Corpuscular Hemoglobin Concent 32.1 Red Cell Distribution Width 13.0 Platelet Count 437 H Mean Platelet Volume 9.2 Neutrophils % 91.9 H Lymphocytes % 5.4 L Monocytes % 1.9 Eosinophils % 0.0 Basophils % 0.1 Nucleated Red Blood Cells % 0.0 Neutrophils # 20.1 H Lymphocytes # 1.2 Monocytes # 0.4 Eosinophils # 0.0 Basophils # 0.0 Nucleated Red Blood Cells # 0.0 Sodium Level 139 Potassium Level 4.6 Chloride Level 108 Carbon Dioxide Level 24 Anion Gap 12 Blood Urea Nitrogen 23 H Creatinine 0.75 Glucose Level 220 Calcium Level 9.5 Phosphorus Level 3.3 Magnesium Level 2.0 Albumin 3.4 Medications Medications Current Medications Ondansetron HCl (Zofran Inj) 4 mg Q6H PRN IV NAUSEA AND/OR VOMITING; Start 01/28/17 at 17:30 Morphine Sulfate (morphine) 2 mg Q4H PRN IV SEVERE PAIN LEVEL 7-10; Start 01/28 at 17:30 Bisacodyl (Dulcolax) 5 mg DAILY PRN PO CONSTIPATION; Start 01/28/17 at 17:30 Enoxaparin Sodium (Lovenox) 40 mg DAILY SC Last administered on 01/30/17 10:03 ; Admin Dose 40 MG; Start 01/29/17 at 09:00 Acetaminophen (Tylenol Tab) 650 mg Q6H PRN PO PAIN AND OR ELEVATED TEMP; Start 01/28/17 at 18:00 Ferrous Sulfate (Ferrous Sulfate (Ec)) 325 mg DAILY PO Last administered on 10:01; Admin Dose 325 MG; Start 01/30/17 at 09:00 Prednisone (Prednisone) 60 mg DAILY PO ; Start 01/31/17 at 09:00 RACHANA DALEY MD Jan 30, 2017 14:57
[2017-01-30] MEDS ORDERED: CALC-143 PO (15:00)
[2017-01-30] MEDS ORDERED: PRED20TA PO (15:00)
[2017-01-30] MEDS ORDERED: PRED50TA PO (15:00)
[2017-01-30] MEDS ORDERED: FER325 PO (15:00)
[2017-01-30] MEDS ORDERED: FAMO-95 PO (15:05)
--- NOTE | 2017-01-30 15:05 | PDOCDIS ---
Discharge Instructions DIAGNOSIS Discharge Diagnosis 1. Vision loss with jaw pain most likely Temporal Arteritis 2. Iron deficiency anemia CONDITION Patient Condition: Good HOME CARE INSTRUCTIONS: Diet Instructions: RegularSpecial Diet: vegetarianYour diet recommendation is : soft foods while jaw pain present ACTIVITY: Activity Restrictions: No Restrictions FOLLOW UP/APPOINTMENTS Follow-up Plan 1. Take Prednisone 60mg for 7 days then 50mg for 7 days. Follow up with your Primary care physician in the next week to continue the steroid taper 2. Call Dr. Alcantar to arrange for outpatient biopsy of left temporal artery within the next week 3. Follow up with your eye doctor 4. Take iron supplements daily due to findings of low iron. You will have dark stools and may cause constipation. Best to take Metamucil daily to help 5. Take Pepcid, and Calcium/Vitamin D supplement daily to avoid bone loss or stomach ulcers 6. If you have recurrent fevers or worsening jaw pain, return to the ED REFERRALS Other Referrals Calderon Alcantar MD Specialty: Cardiothoracic Surgery. Vascular Surgery Office Address [address] [place] [address]. [address] [place] [address] Office RACHANA DALEY MD Jan 30, 2017 15:04
--- NOTE | 2017-01-30 15:06 | DS ---
Date/Time of Note Date/Time of Note DATE: 01/30/17 TIME: 15:05 Discharge Summary Admission/Discharge Info Admit Date/Time Jan 28, 2017 at 16:45 Discharge Date/Time Discharge Diagnosis 1. Vision loss with jaw pain most likely Temporal Arteritis 2. Iron deficiency anemia Patient Condition: Good Consults Vascular Surgery- Dr. 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 Patient states that approximately 3 weeks ago, there was a leak in her house and upon fixing the leak which required operating the carpet and tile and large fans, patient began to feel ill. Patient states that she has been having on and off fevers and actually was in the ED a few weeks ago and was discharged with a Medrol Dosepak which she felt her symptoms were relieved. Patient also saw her primary care provider who stated to alternate between Tylenol and Advil for her fevers. Patient states that she came to the ED as her symptoms have not resolved. Patient had recently seen her sealant mixer for her new onset 2 week history of left eye vision loss which resulted in questionable papilledema and was referred to a retina specialist. Currently patient still complains of all the same complaints. Patient denies any headache or new onset bilateral shoulder or pelvic pain. Patient does have mild chronic right shoulder issues for many years however. Patient denies nausea and vomiting, shortness of breath or chest pain. No issues with mobility and patient states that she never gets sick and is on no medications. No reported fevers in ED, however patient states she took tylenol before she came into the ED. Hospital Course Patient was admitted for workup of possible giant cell arteritis and started on high dose steroids given her ESR and CRP were elevated. Initial plan was for imaging studies to rule out GCA but vascular US tech was not available. Patient states her vision show slight improvement in that she initially only saw darkness in her left eye but was able to see a small amount of light with blurred vision after 2 doses of steroids. Vascular surgery was consulted for biopsy of temporal artery but given her observation status and the fact she did not qualify for full admission she was instructed to follow up as an outpatient for the biopsy. Patient was still experiencing jaw discomfort with chewing and advised to avoid foods that required a lot of effort to eat. Patient did not have any further episodes of fevers during hospitalization. She was given a script for Prednisone 60mg for 1 week then 50mg with instructions to follow up with her PCP for further tapering. Patient was also instructed to take calcium and vitamin D supplements to help prevent bone loss as well as Pepcid for ulcer prophylaxis while on the steroids. She was encouraged to return to the ED if her fevers worsen or new symptoms emerge. She was instructed to follow up with eye doctor as well given the fact she requested to see him while inpatient but was unable to oblige to the request. Patient was agreeable to continue treatment and workup as an outpatient and discharge home in good condition. Home Meds Active Scripts Famotidine* (Pepcid* AC) 20 Mg Tablet, 20 MG PO DAILY, #30 TAB Prov:RACHANA DALEY MD 01/30/17 Calcium Citrate/Vitamin D (Citracal-Vitamin D 200 MG-250) 1 Each Tablet, 1 EACH PO BID for 30 Days, #60 TAB Prov:RACHANA DALEY MD 01/30/17 Prednisone* (Prednisone*) 50 Mg Tablet, 50 MG PO DAILY for 7 Days, #7 TAB Take Prednisone 50mg following completion of Prednisone 60mg Prov:RACHANA DALEY MD 01/30/17 Prednisone* (Prednisone*) 20 Mg Tab, 60 MG PO DAILY for 7 Days, #7 TAB Prov:RACHANA DALEY MD 01/30/17 Ferrous Sulfate* (Ferrous Sulfate*) 325 Mg Tabec, 325 MG PO DAILY for 30 Days, # 30 TAB Prov:RACHANA DALEY MD 01/30/17 Discontinued Scripts Prednisone* (Prednisone*) 20 Mg Tab, 40 MG PO DAILY for 5 Days, TAB Prov:KATIE ADEN MD 01/28/17 Methylprednisolone* (Medrol* DOSE PACK) 4 Mg/Dose-Pack Tab.ds.pk, 4 MG PO . DIRECTED for 7 Days, PACKET Prov:GILMA NUNEZ DO 01/14/17 Follow-up Plan 1. Take Prednisone 60mg for 7 days then 50mg for 7 days. Follow up with your Primary care physician in the next week to continue the steroid taper 2. Call Dr. Alcantar to arrange for outpatient biopsy of left temporal artery within the next week 3. Follow up with your eye doctor 4. Take iron supplements daily due to findings of low iron. You will have dark stools and may cause constipation. Best to take Metamucil daily to help 5. Take Pepcid, and Calcium/Vitamin D supplement daily to avoid bone loss or stomach ulcers 6. If you have recurrent fevers or worsening jaw pain, return to the ED Primary Care Provider John Galindo Time spent on discharge: > 30 minutes Pending Labs Laboratory Tests Test 01/30/17 05:36 White Blood Count 21.910^3/ul (4.8-10.8) Red Blood Count 4.6110^6/ul (4.20-5.40) Hemoglobin 11.7g/dl (12.0-16.0) Hematocrit 36.4% (37.0-47.0) Mean Corpuscular Volume 79.0fl (82.0-101.0) Mean Corpuscular Hemoglobin 25.4pg (29.0-33.0) Mean Corpuscular Hemoglobin Concent 32.1g/dl (32.0-37.0) Red Cell Distribution Width 13.0% (11.5-14.5) Platelet Count 81048^3/UL (140-415) Mean Platelet Volume 9.2fl (7.4-10.4) Neutrophils % 91.9% (39.0-77.0) Lymphocytes % 5.4% (15.0-51.0) Monocytes % 1.9% (0.0-11.0) Eosinophils % 0.0% (0.0-7.0) Basophils % 0.1% (0.0-2.0) Nucleated Red Blood Cells % 0.0/100WBC (0.0-0.0) Neutrophils # 20.110^3/ul (1.6-7.5) Lymphocytes # 1.210^3/ul (0.8-2.9) Monocytes # 0.410^3/ul (0.3-0.9) Eosinophils # 0.010^3/ul (0.0-0.5) Basophils # 0.010^3/ul (0.0-0.1) Nucleated Red Blood Cells # 0.010^3/ul (0.0-0.0) Sodium Level 139mmol/L (135-144) Potassium Level 4.6mmol/L (3.5-5.1) Chloride Level 108mmol/L (97-110) Carbon Dioxide Level 24mmol/L (21-31) Anion Gap 12 (8-16) Blood Urea Nitrogen 23mg/dl (7-20) Creatinine 0.75mg/dl (0.44-1.00) Glucose Level 220mg/dl (70-220) Calcium Level 9.5mg/dl (8.4-10.2) Phosphorus Level 3.3mg/dl (2.5-4.9) Magnesium Level 2.0mg/dl (1.7-2.5) Albumin 3.4g/dl (3.3-4.9) RACHANA DALEY MD Jan 30, 2017 15:06 Albumin 3.4g/dl (3.3-4.9) RACHANA DALEY MD Jan 30, 2017 15:06
[2017-01-31] MEDS ORDERED: predniSONE 20 MG TAB PO SCH (09:00)
== END 2017-01-30 17:00 | disposition home or self-care (01) ==
LOC: E/R 11:56 → INTOOBSV 16:45 → MS2 16:45
PROVIDERS: ADMIT Internal Medicine; ATTEND Internal Medicine
DX: R00.0 Tachycardia, unspecified (principal); R68.84 Jaw pain; H54.7 Unspecified visual loss; R07.0 Pain in throat; R70.0 Elevated erythrocyte sedimentation rate; R79.82 Elevated C-reactive protein (CRP); D64.9 Anemia, unspecified; D50.9 Iron deficiency anemia, unspecified; Z90.5 Acquired absence of kidney; R05 Cough; Z23 Encounter for immunization
CPT/HCPCS: 36415; 70450; 71010; 80053; 80069; 81003; 82728; 83540; 83605; 83735; 84439; 84443; 84484; 85025; 85045; 85610; 85651; 85730; 86140; 87040; 87086; 87880; 90686; 93005; 96374; 99285; G0378; J1650; J1885; J2930; 99217

== ENCOUNTER 2017-02-21 16:57 | Day surgery (SDC) | payer MEDICARE ==
[2017-02-21] VITALS (15 sets, daily range): BP systolic 109–165; BP diastolic 60–95; PULSE 96–126; RESP 11–18; Ht 167.6 cm; Wt 69.6 kg
[~2017-02-21] VITALS: Ht 167.6 cm; Wt 69.6 kg
[~2017-02-21 16:57] MED LIST changes: +CALC-143 PO; +FAMO-95 PO; +FER325 PO; -MED4DP PO; +PRED20TA PO; +PRED50TA PO
[2017-02-21] MEDS ORDERED: PRED20TA PO (17:46)
[2017-02-21] MEDS ORDERED: MIDAZOLAM 1 MG/ML 2 ML INJ ONE (19:28)
[2017-02-21] MEDS ORDERED: FENTAnyl 50 MCG/ML VIAL ONE ×2 (19:28→20:05)
[2017-02-21] MEDS ORDERED: PROPOFOL 20 ML ONE (19:28)
[2017-02-21] MEDS ORDERED: LIDOCAINE 2% (SDV) 5 ML INJ ONE (19:28)
[2017-02-21] MEDS ORDERED: hydrALAzine 20 MG INJ IV PRN (19:30)
[2017-02-21] MEDS ORDERED: EPHEDrine SULFATE 50 MG/5 ML SYG IV PRN (19:30)
[2017-02-21] MEDS ORDERED: OXYCODONE/ACETAMINOPHEN (5/325) TAB PO PRN (19:30)
[2017-02-21] MEDS ORDERED: PROCHLORPERAZINE 10 MG INJ IV PRN (19:30)
[2017-02-21] MEDS ORDERED: ONDANSETRON 4 MG INJ IV PRN (19:30)
[2017-02-21] MEDS ORDERED: DIPHENHYDRAMINE 50 MG INJ IV PRN (19:30)
[2017-02-21] MEDS ORDERED: HYDROmorphONE (0.2 MG/ML) 10ML SYG IV PRN (19:30)
[2017-02-21] MEDS ORDERED: MEPERIDINE 25 MG INJ IV PRN (19:30)
[2017-02-21] MEDS ORDERED: FENTAnyl 50 MCG/ML VIAL IV PRN (19:30)
[2017-02-21] MEDS ORDERED: LABETALOL HCL 20MG INJ IV PRN (19:30)
[2017-02-21] MEDS ORDERED: CEFAZOLIN 1 GM INJ ONE (19:40)
[2017-02-21] MEDS ORDERED: ONDANSETRON 4 MG INJ ONE (19:41)
[2017-02-21] MEDS ORDERED: METOCLOPRAMIDE 10 MG INJ ONE (19:41)
[2017-02-21] MEDS ORDERED: PHENYLephrine (100 MCG/ML) 5ML SYG ONE (19:41)
[2017-02-21] MEDS ORDERED: ACETAMINOPHEN 1000MG/100ML IV 100 ML ONE (19:55)
--- NOTE | 2017-02-21 20:13 | OPR ---
Date/Time of Note Date/Time of Note DATE: 02/21/17 TIME: 20:11 Operative Report Procedure Date: Feb 21, 2017 Preoperative Diagnosis Temporal arteritis Postoperative Diagnosis Same Operation/Procedure Performed Right temporal artery biopsy Left temporal artery biopsy Surgeon see signature line Shipping Clerk Packing None Anesthesia Type: general Estimated Blood Loss: none Transfusion none Specimen Right and left temporal artery Grafts/Implants none Tubes/Drains None Complications None none Pt Condition Post Procedure: critical Disposition: PACU Indications Dictated Procedure Description Patient was placed supine position prepped and in usual sterile fashion 1% lidocaine was used at the operation for local anesthesia I made a 2 cm incision right temporal area anterior to the ear incision was taken down to the subcutaneous tissue which was an open using electrocautery temporal artery was identified and a 2 cm segment of it was transected and lucid suture ligated and sent for pathological examination the wound was irrigated and closed in 2 layers of 2-0 Vicryl suture in running subcuticular skin closure next Exacting operation was done on the left side patient tolerated both procedures well end of dictation TIFFANY HERRMANN MD Feb 21, 2017 20:13
[2017-02-21] MEDS ORDERED: oxyCODONE 5 MG TAB PO PRN (20:30)
== END 2017-02-21 21:45 | disposition home or self-care (01) ==
LOC: SDS 16:57
PROVIDERS: ATTEND Thoracic Surgery (Cardiothoracic Vascular Surgery)
DX: M31.6 Other giant cell arteritis (principal); I10 Essential (primary) hypertension; E78.5 Hyperlipidemia, unspecified; E03.9 Hypothyroidism, unspecified
CPT/HCPCS: 37609; 80053; 81001; 85025; 85610; 85730; 88307; 88313; J0131; J0690; J2175; J2250; J2370; J2405; J2765; J3010